=== PATIENT | male | born 1970 | race Two or more races ===

== ENCOUNTER 2022-03-24 08:43 | Emergency (ER) | payer MEDICAID ==
[~2022-03-24] VITALS: Ht 167.6 cm; Wt 112.0 kg
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
--- NOTE | 2022-03-24 09:30 | NUR ---
SEEN BY DR. JESUS
--- NOTE | 2022-03-24 09:48 | NUR ---
Patient discharged to home in stable condition. Written and verbal after care instructions given. Patient verbalizes understanding of instruction.
[2022-03-24 09:53] VITALS: BP 130/64
== END 2022-03-24 09:55 | disposition home or self-care (01) ==
LOC: ER 08:49
DX: K59.00 Constipation, unspecified (principal); I10 Essential (primary) hypertension; E78.00 Pure hypercholesterolemia, unspecified; E11.9 Type 2 diabetes mellitus without complications; Z88.0 Allergy status to penicillin